=== PATIENT | female | born 1955 | race Caucasian/White ===

== ENCOUNTER 2017-05-19 10:47 | Day surgery (SDC) | payer OTHER, BC ==
--- NOTE | 2017-04-26 12:25 | PAT Medication Instructions ---
Service Date Apr 26, 2017. Current Home Medication List Aspirin Enteric Coated (Ecotrin Or Generic), 81 MG PO QPM Duloxetine Hcl (Cymbalta), 30 MG PO BID Fish Oil (Canyon-3), 2 CAP PO QAM Metoprolol Succ (Toprol Xl) (Toprol-Xl), 25 MG PO QPM Multiple Vitamin (Multivitamin), 1 TAB PO QAM Oxycodone Hcl (Oxycontin), 15 MG PO ONCE DAILY PRN for Pain Oxymorphone Hcl (Opana Er (Crush Resistant), 1 TAB PO BID Ranitidine (Zantac), 150 MG PO BID Triamterene/Hctz (Triamterene/Hctz 37.5-25MG Tab), 0.5 TAB PO BID Medication Instructions For Your Scheduled Surgery - Hold the following medications 2 weeks prior to surgery: Fish Oil (Canyon-3), 2 CAP PO QAM - Hold the following medications the morning of surgery: Triamterene/Hctz (Triamterene/Hctz 37.5-25MG Tab), 0.5 TAB PO BID Multiple Vitamin (Multivitamin), 1 TAB PO QAM - Take the following medications the morning of surgery with a sip of water OTHERWISE NOTHING TO EAT OR DRINK AFTER MIDNIGHT: Duloxetine Hcl (Cymbalta), 30 MG PO BID Ranitidine (Zantac), 150 MG PO BID Oxycodone Hcl (Oxycontin), 15 MG PO ONCE DAILY PRN for Pain (may take if needed up to 4 hours prior to surgery if needed) Oxymorphone Hcl (Opana Er (Crush Resistant), 1 TAB PO BID (may take if needed up to 4 hours prior to surgery if needed) - Take the following medications as scheduled the night before surgery: Metoprolol Succ (Toprol Xl) (Toprol-Xl), 25 MG PO QPM Aspirin Enteric Coated (Ecotrin Or Generic), 81 MG PO QPM Duloxetine Hcl (Cymbalta), 30 MG PO BID Triamterene/Hctz (Triamterene/Hctz 37.5-25MG Tab), 0.5 TAB PO BID Ranitidine (Zantac), 150 MG PO BID Oxycodone Hcl (Oxycontin), 15 MG PO ONCE DAILY PRN for Pain Oxymorphone Hcl (Opana Er (Crush Resistant), 1 TAB PO BID If you have any questions please call us at [phone] or [phone] or [phone]
--- NOTE | 2017-04-26 13:11 | DIAGNOSTIC IMAGING REPORT ---
CHEST PREADMISSION(PA/LAT) CLINICAL HISTORY: Preoperative chest COMPARISON STUDY: No previous studies for comparison. FINDINGS: The cardiac and mediastinal contours are normal. There is no evidence of focal pulmonary consolidation. There is no evidence of failure. No pleural effusions are visualized.[ Postsurgical changes are present within the cervical and lumbar spines. IMPRESSION: No active disease in the chest. Electronically signed by: Doroteo Marroquin M.D. 04/26/2017 1:10 PM Dictated Date/Time: 04/26/2017 1:09 PM
[2017-04-26 13:53] LABS: BASO ABS # 0.07 K/uL (0-0.2); COMPLETE YES; HEMATOCRIT 43.1 % (37-47); IG% 0.1 %; LYMPH % 30.1 %; MEAN CELL VOLUME 94.7 fL (80-100); MEAN CORPUSCULAR HEMOGLOBIN 31.2 pg (25-34); MEAN CORPUSCULAR HGB CONC 32.9 g/dl (32-36); MEAN PLATELET VOLUME 10.5 fL (7.4-10.4); MONO % 11.3 %; NEUT % 53.5 %; PLATELET COUNT 248 K/uL (130-400); RED BLOOD COUNT 4.55 M/uL (4.2-5.4); WHITE BLOOD COUNT 7.32 K/uL (4.8-10.8)
[2017-04-26 14:00] LABS: URINE APPEARANCE CLEAR (CLEAR); URINE BILIRUBIN NEG (NEG); URINE COLOR YELLOW; URINE EPITHELIAL CELL AUTO >30 /lpf (0-5); URINE NITRITE NEG (NEG); URINE SPECIFIC GRAVITY 1.013 (1.000-1.030); UROBILINOGEN NEG (NEG); ZZUR CULT IF INDIC CLEAN CATCH NO
[2017-04-26 14:11] LABS: MANUAL MICROSCOPIC REQUIRED? NO; REVIEW REQ? NO
[2017-04-26 15:05] LABS: BUN/CREATININE RATIO 20.5 (10-20); CALCIUM 9.6 mg/dl (8.5-10.1); CREATININE 0.72 mg/dl (0.60-1.20); POTASSIUM 3.9 mmol/L (3.5-5.1)
[~2017-05-19] VITALS: Ht 170.2 cm; Wt 88.0 kg
[~2017-05-19 10:47] MED LIST: ASPI81TA21 PO; CEFAZOLIN 2000 MG/60 ML D5W IV SCH; CYM/30 PO; FISHOIL PO; LACTATED RINGER'S 1000ML 1,000 ML IV SCH; METO25TA3 PO; MULTTAB58 PO; MXZC25 PO; OXYC15TA89 PO; OXYM1TAB26 PO; ZNTT/150 PO
[2017-05-19 11:17] VITALS: BP 119/76; PULSE 61; TEMP 36.7; O2SAT 98; Ht 170.2 cm; Wt 88.0 kg
[2017-05-19] MEDS ORDERED: NEOSTIGMINE METHYLSULFATE 5 MG/5 ML SYR ONE (11:45)
[2017-05-19] MEDS ORDERED: ONDANSETRON INJ 2 MG/ML 2 ML VIAL ONE (11:45)
[2017-05-19] MEDS ORDERED: PROPOFOL IV EMULSION 10 MG/ML 20 ML VIAL IV ONE (11:45)
[2017-05-19] MEDS ORDERED: FENTANYL CITRATE INJ 50 MCG/1 ML 2 ML VIAL ONE (11:45)
[2017-05-19] MEDS ORDERED: GLYCOPYRROLATE INJ 0.2 MG/ML VIAL ONE (11:45)
[2017-05-19] MEDS ORDERED: DEXAMETHASONE SOD INJ 4 MG/ML VIAL ONE (11:45)
[2017-05-19] MEDS ORDERED: MIDAZOLAM HCL 1 MG/ML 2ML VIAL ONE (11:45)
[2017-05-19] MEDS ORDERED: LIDOCAINE HCL 2% 2 ML VIAL (20MG/ML) ONE (11:45)
[2017-05-19] MEDS ORDERED: ROCURONIUM BROMIDE 10 MG/ML 5 ML VIAL IV ONE (11:45)
--- NOTE | 2017-05-19 12:02 | History & Physical Bridge Note ---
H&P Re-Evaluation Bridge Note: I have examined the patient, reviewed the History & Physical and in the interval since the performance of the History & Physical I have noted the following changes of clinical significance: No changes noted
--- NOTE | 2017-05-19 12:03 | History and Physical ---
History & Physical Date May 19, 2017. Chief Complaint Right SI joint pain History of Present Illness The patient is a 61 year old female with complaints of chronic persistent right SI joint pain Additional History Hepatic Disease: No Endocrine Disorder: No Kidney Disease: No Hypertension: Yes Heart Disease: No Bleeding Tendencies: No Infectious Diseases: No Allergies Coded Allergies: No Known Allergies (Unverified , 05/19/17) Home Medications Scheduled Aspirin Enteric Coated (Ecotrin Or Generic), 81 MG PO QPM Duloxetine Hcl (Cymbalta), 30 MG PO BID Fish Oil (Hooper-3), 2 CAP PO QAM Metoprolol Succ (Toprol Xl) (Toprol-Xl), 25 MG PO QPM Multiple Vitamin (Multivitamin), 1 TAB PO QAM Oxymorphone Hcl (Opana Er (Crush Resistant), 1 TAB PO BID Ranitidine (Zantac), 150 MG PO BID Triamterene/Hctz (Triamterene/Hctz 37.5-25MG Tab), 0.5 TAB PO BID Scheduled PRN Oxycodone Hcl (Oxycontin), 15 MG PO ONCE DAILY PRN for Pain Physical Examination Skin: warm/dry, no rash Eyes: normal inspection, EOMI, sclerae normal ENT: normal ENT inspection, pharynx normal Head: normocephalic, atraumatic Neck: supple, no adenopathy, trachea midline Respiratory/Chest: lungs clear, normal breath sounds, no respiratory distress Cardiovascular: regular rate, rhythm, no edema, no murmur Abdomen / GI: normal bowel sounds, non tender Back: normal inspection Extremities: normal inspection, normal range of motion Neurologic/Psych: no motor/sensory deficits, alert, normal reflexes, oriented x 3 Diagnosis Right sacroiliitis Plan of Treatment Right SI joint fusion
[2017-05-19] MEDS ORDERED: BUPIVACAINE/EPINEPHRINE 0.5% MPF 1:200,000 10 ML VIAL ONE (12:07)
[2017-05-19] MEDS ORDERED: BACITRACIN 50000 UNIT VIAL ONE (12:07)
[2017-05-19] MEDS ORDERED: SODIUM CHLORIDE 0.9% PF 50 ML VIAL ONE (12:32)
[2017-05-19] MEDS ORDERED: EpHEDrine SULFATE INJ 50 MG/ML AMP IV PRN (12:45)
[2017-05-19] MEDS ORDERED: HYDROmorphone INJ 2 MG/ML SYR/VIAL IV PRN ×2 (12:45→15:15)
[2017-05-19] MEDS ORDERED: PHENYLEPHRINE 100MCG/ML 5ML SYR IV PRN (12:45)
[2017-05-19] MEDS ORDERED: ONDANSETRON INJ 2 MG/ML 2 ML VIAL IV PRN (12:45)
[2017-05-19] MEDS ORDERED: ATROPINE SULFATE 0.1 MG/ML 5ML SYR IV PRN (12:45)
[2017-05-19] MEDS ORDERED: OXYC15TA89 PO (13:16)
--- NOTE | 2017-05-19 13:18 | Discharge Instructions ---
Discharge Instructions Date of Service May 19, 2017. Admission Reason for Admission: Si Joint Dysfunction Discharge Discharge Diagnosis / Problem: sacroiliitis Discharge Goals Goal(s): Improve function Activity Recommendations Activity Limitations: per Instructions/Follow-up section Weightbearing Status: Right toe touch . Instructions / Follow-Up Instructions / Follow-Up Patient is to use walker when ambulating toe-touch weightbearing right lower extremity. She may shower postop day 2. Current Hospital Diet Patient's current hospital diet: Discharge Diet Recommended Diet: Regular Diet Procedures Procedures Performed: Right Sacroiliac Joint Fusion Pending Studies Studies pending at discharge: no Medical Emergencies . Who to Call and When: Medical Emergencies: If at any time you feel your situation is an emergency, please call 911 immediately. . Non-Emergent Contact Non-Emergency issues call your: Primary Care Provider . "Provider Documentation" section prepared by Toni Agrawal. . VTE Core Measure Inpt VTE Proph given/why not?: Santiago Ponce, ONUR's
[2017-05-19] MEDS ORDERED: OXYCODONE HCL IR 5 MG TAB (IMMEDIATE RELEASE) PO PRN (13:30)
[2017-05-19] MEDS ORDERED: IBUPROFEN 200 MG TAB PO PRN (13:30)
[2017-05-19] MEDS ORDERED: HYDROmorphone INJ 1 MG/ML SYR IV PRN (13:30)
[2017-05-19] MEDS ORDERED: ACETAMINOPHEN 650 MG SUPP PR PRN (13:30)
--- NOTE | 2017-05-19 13:38 | DIAGNOSTIC IMAGING REPORT ---
SACRUM CLINICAL HISTORY: RT SACROILIAC JOINT FUSION COMPARISON STUDY: None. FINDINGS: Total fluoroscopy time is 2 minutes 18 seconds. 3 fluoroscopic spot images of the sacrum. There are 3 cannulated screws through the right sacroiliac joint. The hardware is intact. Evidence for prior lumbosacral posterior spinal fusion. IMPRESSION: [Fluoroscopy provided for right sacroiliac joint fusion. Electronically signed by: Rocael Luque M.D. 05/19/2017 1:37 PM Dictated Date/Time: 05/19/2017 1:34 PM
--- NOTE | 2017-05-19 14:16 | Anesthesiology Progress Note ---
Anesthesia Post Op Note Date & Time May 19, 2017 at 14:16 Vital Signs Pain Intensity: 4 Vital Signs Past 12 Hours Date Time Temp Pulse Resp B/P (MAP) Pulse Ox O2 Delivery O2 Flow Rate FiO2 05/19/17 13:47 114/75 05/19/17 13:46 69 22 05/19/17 13:46 69 22 100 05/19/17 13:41 57 12 05/19/17 13:41 57 12 146/77 100 05/19/17 13:36 60 12 05/19/17 13:36 60 12 114/69 100 05/19/17 13:32 124/73 05/19/17 13:31 36.0 63 16 124/73 99 Oxymask 10 05/19/17 11:17 36.7 61 19 119/76 98 Room Air Notes Mental Status: alert / awake / arousable, participated in evaluation Pt Amnestic to Procedure: Yes Nausea / Vomiting: adequately controlled Pain: adequately controlled Airway Patency, RR, SpO2: stable & adequate BP & HR: stable & adequate Hydration State: stable & adequate Anesthetic Complications: no major complications apparent
[2017-05-19 14:25] VITALS: BP 120/63; PULSE 58; TEMP 36.6; O2SAT 92
[2017-05-19 14:55] VITALS: BP 117/58; PULSE 64; TEMP 36.9; O2SAT 95
--- NOTE | 2017-05-19 15:10 | [facility] Operative Report ---
Operative Report Operative Date May 19, 2017. Pre-Operative Diagnosis Right Sacroilitis Post-Operative Diagnosis Same as preoperative Procedure(s) Performed Right Sacroiliac Joint Fusion Surgeon Dr. Toni Agrawal Sap Bw Bi Developer Surgeon(s) Sofia Dumas PA-C Estimated Blood Loss 25ML Findings None Specimens None per surgeon Description of Procedure Patient was met with preoperatively case discussed all questions are dressed. After informed consent patient was taken to the operative suite and intubated and placed a prone position on the Soham table the chest pads and hip bolsters. The right upper thigh and buttock was then prepped and draped nostril fashion. The assistance of fluoroscopy in AP inlet outlet and lateral views we evaluated the right SI joint. 3 cm incision was placed on the right upper buttock in alignment with the lateral view of fluoroscopy to address the SI joint. A K wire was then placed in the proximal portion of the sacrum with fluoroscopic visualization. After this was placed we dilated up to a guide cannula in overdrilled on the K wire again with fluoroscopic visualization. A 45 mm GODFREY-coated slotted screw was then placed across the joint. Using outrigger guide we placed a second guidewire just distal to the screw again verifying position with fluoroscopy. Again we drilled across the SI joint and this at this time placed a 40 mm GODFREY-coated slotted screw. However guide was once again used for the distal screw. Again K K wire placed across SI joint drilled to a 35 mm screw. again and GODFREY-coated size screw was placed. All screws had excellent fixation. All screws were filled with locally harvested morcellized autograft as well as Alyssa bone graft. Incision was in copious irrigated and closed with subcutaneous Vicryl and 4 Monocryl for final skin closure. Steri-Strips sterile dressing was placed. Patient was then awakened taken to PACU in stable condition. Please note Sofia Manzano was present throughout the entire procedure involved in patient positioning complex portions of the surgeon final skin closure. I attest to the content of the Intraoperative Record and any orders documented therein. Any exceptions are noted below.
[2017-05-19 15:15] VITALS: BP 116/63; PULSE 67; TEMP 37.1; O2SAT 94
[2017-05-19 15:45] VITALS: BP 108/61; PULSE 64; TEMP 37.1; O2SAT 94
== END 2017-05-19 16:15 | disposition home or self-care (01) ==
LOC: C.ACU 10:47
PROVIDERS: ATTEND Orthopaedic Surgery Orthopaedic Surgery of the Spine
DX: M46.1 Sacroiliitis, not elsewhere classified (principal); Z79.82 Long term (current) use of aspirin; Z79.899 Other long term (current) drug therapy